=== PATIENT | male | born 1950 | race Caucasian/White ===

== ENCOUNTER 2019-02-18 13:45 | Outpatient (CLI) | payer MEDICARE, BC ==
[~2019-02-18] VITALS: Ht 185.4 cm; Wt 63.0 kg
[2019-02-18 14:37] VITALS: BP 103/65
--- NOTE | 2019-02-19 02:45 | Consultation ---
DATE OF CONSULTATION: 02/18/2019 CHIEF COMPLAINT: Referral for screening colonoscopy. PAST MEDICAL HISTORY: 1. Sinusitis. 2. Chronic GERD. 3. Kidney stones. 4. Colonic polyps. PAST SURGICAL HISTORY: Lithotripsy 2017. MEDICATION: Probiotics and Gaviscon. FAMILY HISTORY: Father had diabetes. Mother had leukemia. SOCIAL HISTORY: The patient denies any alcohol but used to smoke, quit two years ago. ALLERGIES: No known drug allergies. REVIEW OF SYSTEMS: A 10-point review of systems was performed and pertinent positives in HPI. PHYSICAL EXAMINATION: VITAL SIGNS: Temperature 98.1, blood pressure 103/65, pulse 76, respirations 20. HEENT: Normocephalic and atraumatic. Sclerae anicteric. NECK: Supple. No evidence of obvious lymphadenopathy. CARDIOVASCULAR: Regular rate and rhythm. Plus S1 and S2. No obvious murmur. LUNGS: Clear to auscultation bilaterally. ABDOMEN: Positive bowel sounds. Soft and nontender. No rebound. No guarding. No peritoneal sign. EXTREMITIES: No cyanosis, no clubbing, no edema. ASSESSMENT AND PLAN: The patient is a 68-year-old male, referral for screening colonoscopy. Last colonoscopy about 5 years ago and actually prep was not adequate at that time. The patient was given instruction for colonoscopy. The prep was explained to him in detail. The patient was given stool prep with Dulcolax combo and scheduled for this month to get colonoscopy done. I want to thank Dr. Isaac Ramiro for this kind referral. Shai Roberts M.D. DR: Jd JOB#: [id number] CC: Dr. Murillo___ Ramiro
[2019-02-19] MEDS ORDERED: PROBIOTIC1 EAC2 PO (08:21)
[2019-02-19] MEDS ORDERED: GAVISCON ES TA1 EACH PO (08:21)
== END 2019-02-18 16:00 | disposition home or self-care (01) ==
LOC: PAN 13:45
DX: K21.9 Gastro-esophageal reflux disease without esophagitis (principal); Z87.442 Personal history of urinary calculi; Z86.010 Personal history of colon polyps; Z79.899 Other long term (current) drug therapy; Z87.891 Personal history of nicotine dependence

== ENCOUNTER 2019-04-01 13:23 | Outpatient (CLI) | payer MEDICARE, BC ==
[~2019-04-01 13:23] MED LIST: GAVISCON ES TA1 EACH PO; PROBIOTIC1 EAC2 PO
--- NOTE | 2019-04-01 14:06 | GI Progress Note ---
Assessment/Plan Problems: (1) Diverticulosis ICD Codes: K57.90 - Diverticulosis of intestine, part unspecified, without perforation or abscess without bleeding SNOMED: 283182841 (2) Internal hemorrhoids ICD Codes: K64.8 - Other hemorrhoids SNOMED: 14496590 (3) GERD (gastroesophageal reflux disease) ICD Codes: K21.9 - Gastro-esophageal reflux disease without esophagitis SNOMED: 418423128 Status: stable Status Narrative Discussed with Dr. Roberts Assessment/Plan SUMMARY OF FINDINGS: 1. Scattered diverticulosis in the left colon. 2. Internal hemorrhoids. RECOMMENDATIONS: Findings reviewed with patient Continue GERD diet Return to clinic as needed repeat colonoscopy in 5 years. The patient was seen and examined at bedside and all new and available data was reviewed in the patients chart. I agree with the above findings, impression and plan. (Patient seen earlier today. Signature stamp does not reflect patient encounter time.). - Shai Roberts MD Subjective Gastrointestinal/Abdominal: Reports: no symptoms Objective Blood pressure 118/71 pulse 72 oxygen saturation 96% room air General Appearance: WD/WN, no apparent distress, alert Cardiovascular: normal rate Respiratory/Chest: normal breath sounds, no respiratory distress Abdominal Exam: normal bowel sounds, non tender, soft Extremities: normal range of motion, non-tender Yuko Miranda NP Apr 01, 2019 14:06
[2019-04-01 14:22] VITALS: BP 118/71
== END 2019-04-01 15:23 | disposition home or self-care (01) ==
LOC: PAN 13:23
DX: K57.90 Diverticulosis of intestine, part unspecified, without perforation or abscess without bleeding (principal); K64.8 Other hemorrhoids; K21.9 Gastro-esophageal reflux disease without esophagitis